=== PATIENT | female | born 1995 | race Caucasian/White ===

== ENCOUNTER → 2021-12-10 | Outpatient (CLI) | payer SELFPAY ==
[2021-12-12 22:06] LABS: CHLAMYDIA TRACHOMATIS, NAA Negative (Negative)
== END | disposition home or self-care (01) ==
LOC: LAB SHORT 18:53
PROVIDERS: Family Medicine
DX: R30.9 Painful micturition, unspecified (principal); Z72.51 High risk heterosexual behavior
CPT/HCPCS: 87086; 87491; 87591

== ENCOUNTER → 2023-06-04 | Outpatient (CLI) | payer OTHER ==
[2023-06-06 04:07] LABS: CHLAMYDIA TRACHOMATIS, NAA Negative (Negative)
== END | disposition home or self-care (01) ==
LOC: LAB 11:15 → LAB SHORT 11:15
PROVIDERS: Nurse Practitioner Family
DX: N39.0 Urinary tract infection, site not specified (principal)
CPT/HCPCS: 87491; 87591

== ENCOUNTER → 2023-10-29 | Outpatient (CLI) | payer OTHER ==
[~2023-10-29] MED LIST: ONDA4ODT SL
== END | disposition home or self-care (01) ==
LOC: LAB 08:12 → LAB SHORT 08:12
DX: R87.619 Unspecified abnormal cytological findings in specimens from cervix uteri (principal)
CPT/HCPCS: 88305

== ENCOUNTER 2023-11-22 18:10 | Emergency (ER) | payer OTHER ==
[~2023-11-22] VITALS: Ht 167.6 cm; Wt 80.3 kg
[2023-11-22 18:32] VITALS: BP 121/102
[2023-11-22 18:32] LABS: Source, Urine Clean Catch
[2023-11-22 18:36] LABS: Appearance, Urine Cloudy (Clear); Bilirubin, Urine Neg (Neg); Blood, Urine 5+ (Neg); Glucose Qualitative, Urine Neg (Neg); Ketones, Urine 2+ (Neg); Leukocyte Esterase, Urine 3+ (Neg); Nitrite, Urine Neg (Neg); Protein, Urine 2+ (Neg); Specific Gravity, Urine 1.015 (1.003-1.022); Urobilinogen, Urine NORM (Normal)
[2023-11-22 18:45] LABS: Color, Urine Pale Yellow (P-Yellow)
[2023-11-22 18:48] LABS: Bacteria Many /hpf; Red Blood Cells, Urine TNTC /hpf (0-2); Squamous Epithelial Cells Rare /hpf (Few); Transitional Epithelial Cells Rare /hpf (0-Rare); White Blood Cells, Urine TNTC /hpf (0-5)
[2023-11-22 18:49] LABS: Mucus Light (0-Heavy)
[2023-11-22] MEDS ORDERED: Pyridium200 MG PO (19:23)
[2023-11-22] MEDS ORDERED: CEFP200 PO (19:23)
== END 2023-11-22 19:35 | disposition home or self-care (01) ==
LOC: ER 18:10
PROVIDERS: Emergency Medicine
DX: R30.0 Dysuria (principal); Z88.8 Allergy status to other drugs, medicaments and biological substances
CPT/HCPCS: 81001; 87086; 99283; A9270

== ENCOUNTER → 2024-01-09 | Outpatient (CLI) | payer OTHER ==
[~2024-01-09] MED LIST changes: +CEFP200 PO; +Pyridium200 MG PO
== END ==
LOC: LAB 12:28 → LAB SHORT 12:28
DX: N39.0 Urinary tract infection, site not specified (principal)
CPT/HCPCS: 87086

== ENCOUNTER 2024-01-21 07:36 | Day surgery (SDC) | payer OTHER ==
[~2024-01-21] VITALS: Ht 167.6 cm; Wt 79.7 kg
[~2024-01-21 07:36] MED LIST changes: +Lactated Ringer's 1,000 ML IV ONE
[2024-01-21] MEDS ORDERED: HYDHCL25 (08:57)
[2024-01-21] MEDS ORDERED: Lactated Ringer's 1,000 ML IV ONE (09:06)
[2024-01-21] MEDS ORDERED: propofoL 20 ML IV ONE (09:13)
[2024-01-21] MEDS ORDERED: FentaNYL Citrate 50 MCG/ML 2 ML Injection ONE (09:14)
--- NOTE | 2024-01-21 09:15 | NUR ---
[facility]21/24 [facility] [facility] A[facility] OF RASH TO BACKSIDE, OK TO PROCEED PER DR FIGUEROA
[2024-01-21] MEDS ORDERED: Vasopressin 20 UNITS/ML 1ML Vial XX ONE (09:28)
[2024-01-21] MEDS ORDERED: Lidocaine HCl 1% 30 ML SDV XX ONE (09:28)
--- NOTE | 2024-01-21 09:29 | NUR ---
01/21/24 0929 Samira Shoemaker 30ML OF LIDOCAINE 1% MIXED WITH 10 UNITS OF VASOPRESSIN FOR INJECTION AT THE OPSITE BY DR FIGUEROA.
[2024-01-21] MEDS ORDERED: Dexamethasone Sod Phos 10 MG/ML 1ML VIAL ONE (09:33)
[2024-01-21] MEDS ORDERED: Ondansetron HCl 2 MG / ML 2ML Vial ONE (09:33)
[2024-01-21] MEDS ORDERED: Metoclopramide HCl 5MG / ML 2ML Vial ONE (09:33)
[2024-01-21] MEDS ORDERED: Ketorolac Tromethamine 30mg Vial ONE (09:38)
[2024-01-21] MEDS ORDERED: Acetaminophen 500 MG Tab ONE (10:24)
[2024-01-21 10:36] VITALS: BP 107/71
--- NOTE | 2024-01-21 10:59 | NUR ---
01/21/24 1059 Charity Bautista PT VOIDED PRIOR TO D/C TO HOME.
== END 2024-01-21 10:59 | disposition home or self-care (01) ==
LOC: ORSCSDS 07:36
PROVIDERS: Obstetrics & Gynecology
PROC: 0UBC7ZX Excision of Cervix, Via Natural or Artificial Opening, Diagnostic (ICD-10-PCS; principal; 2024-01-21 09:30)
DX: N72 Inflammatory disease of cervix uteri (principal); Z79.899 Other long term (current) drug therapy
CPT/HCPCS: 88305; A9270; J1100; J1885; J2405; J2704; J2765; J3010; J7120

== ENCOUNTER → 2024-02-22 | Outpatient (CLI) | payer OTHER ==
[~2024-02-22] MED LIST changes: +HYDHCL25; -Lactated Ringer's 1,000 ML IV ONE
[2024-02-22 11:31] LABS: Source, Urine Clean Catch
[2024-02-22 13:16] LABS: Appearance, Urine Hazy (Clear); Bilirubin, Urine Neg (Neg); Blood, Urine 5+ (Neg); Color, Urine Yellow (P-Yellow); Glucose Qualitative, Urine Neg (Neg); Ketones, Urine Neg (Neg); Leukocyte Esterase, Urine 3+ (Neg); Nitrite, Urine Neg (Neg); Protein, Urine 2+ (Neg); Specific Gravity, Urine 1.005 (1.003-1.022); Urobilinogen, Urine NORM (Normal); pH, Urine 6.5 (5.0-8.0)
[2024-02-22 13:34] LABS: Bacteria Few /hpf; Squamous Epithelial Cells Rare /hpf (Few); White Blood Cells, Urine 50-100 /hpf (0-5)
[2024-02-22 15:33] LABS: Bacterial Vaginosis PCR Positive (NEGATIVE); Candida Group, PCR NOT DETECTED (NOT DETECT); Candida glabrata-krusei, PCR NOT DETECTED (NOT DETECT)
== END | disposition home or self-care (01) ==
LOC: LAB 11:28 → LAB SHORT 11:28
PROVIDERS: Obstetrics & Gynecology
DX: N76.0 Acute vaginitis (principal); R30.0 Dysuria
CPT/HCPCS: 81001; 87077; 87086; 87186; 87481; 87661; 87801

== ENCOUNTER → 2024-03-08 | Outpatient (CLI) | payer OTHER ==
[2024-03-08 14:17] LABS: Source, Urine Clean Catch
[2024-03-08 15:36] LABS: Appearance, Urine Hazy (Clear); Bilirubin, Urine Neg (Neg); Blood, Urine 2+ (Neg); Color, Urine Yellow (P-Yellow); Glucose Qualitative, Urine Neg (Neg); Ketones, Urine Neg (Neg); Leukocyte Esterase, Urine 3+ (Neg); Nitrite, Urine Neg (Neg); Protein, Urine Neg (Neg); Urobilinogen, Urine NORM (Normal); pH, Urine 6.5 (5.0-8.0)
[2024-03-08 15:59] LABS: Bacteria Few /hpf; Squamous Epithelial Cells Few /hpf (Few); White Blood Cells, Urine TNTC /hpf (0-5)
[2024-03-08 20:10] LABS: Bacterial Vaginosis PCR Negative (NEGATIVE); Candida Group, PCR NOT DETECTED (NOT DETECT); Candida glabrata-krusei, PCR NOT DETECTED (NOT DETECT)
== END ==
LOC: LAB 14:16 → LAB SHORT 14:16
PROVIDERS: Obstetrics & Gynecology
DX: N76.0 Acute vaginitis (principal); R30.0 Dysuria
CPT/HCPCS: 81001; 87086; 87481; 87661; 87801

== ENCOUNTER → 2024-05-05 | Outpatient (CLI) | payer OTHER ==
[~2024-05-05] MED LIST changes: +ALLEGRA ALLERGY60 MG PO; +CIPR500 PO; +PRENATAL TABLE1 EAC2 PO; +VSL#3 112.5B1 EACH PO; +ZOLOFT25 MG PO
[2024-05-05 19:57] LABS: Bacterial Vaginosis PCR Negative (NEGATIVE); Candida Group, PCR NOT DETECTED (NOT DETECT)
[2024-05-05 19:58] LABS: Candida glabrata-krusei, PCR DETECTED (NOT DETECT)
== END ==
LOC: LAB 17:02 → LAB SHORT 17:02
PROVIDERS: Obstetrics & Gynecology
DX: N76.0 Acute vaginitis (principal)
CPT/HCPCS: 87481; 87661; 87801

== ENCOUNTER 2024-05-20 19:43 | Inpatient (IN) | payer OTHER ==
[~2024-05-20] VITALS: Ht 167.6 cm; Wt 83.8 kg
[~2024-05-20 19:43] MED LIST changes: -ALLEGRA ALLERGY60 MG PO; -CIPR500 PO; -PRENATAL TABLE1 EAC2 PO; -VSL#3 112.5B1 EACH PO; -ZOLOFT25 MG PO
[2024-05-20] MEDS ORDERED: ZOLOFT25 MG PO (20:09)
[2024-05-20] MEDS ORDERED: ALLEGRA ALLERGY60 MG PO (20:10)
[2024-05-20] MEDS ORDERED: NS 1,000 ML IV SCH (20:40)
[2024-05-20 20:41] LABS: BASOPHILS ABSOLUTE AUTO 0.02 K/mm3 (0.00-0.23); BASOPHILS PERCENT AUTO 0 % (0-2); EOSINOPHILS ABSOLUTE AUTO 0.07 K/mm3 (0.00-0.68); EOSINOPHILS PERCENT AUTO 1 % (0-6); Hematocrit 34.7 % (33.0-51.0); Hemoglobin 11.7 g/dL (11.5-16.0); IMMATURE GRAN ABSOLUTE AUTO 0.02 K/mm3 (0.00-0.10); IMMATURE GRAN PERCENT AUTO 0 % (0-1); LYMPHOCYTES ABSOLUTE AUTO 1.46 K/mm3 (0.84-5.20); LYMPHOCYTES PERCENT AUTO 24 % (21-46); MONOCYTES ABSOLUTE AUTO 0.66 K/mm3 (0.16-1.47); MONOCYTES PERCENT AUTO 11 % (4-13); Mean Corpuscular HGB 29.5 pg (26.0-34.0); Mean Corpuscular HGB Conc 33.7 g/dL (31.5-36.5); Mean Corpuscular Volume 88 fL (80-100); Mean Platelet Volume 11.6 fL (9.1-12.4); NEUTROPHILS ABSOLUTE AUTO 3.89 K/mm3 (1.96-9.15); NEUTROPHILS PERCENT AUTO 64 % (41-73); Platelet Count 191 K/mm3 (150-400); RDW Coefficient Variation 12.6 % (11.7-14.2); RDW Standard Deviation 40.4 fL (35.1-46.3); Red Blood Cell Count 3.96 M/mm3 (3.80-5.20); White Blood Cell Count 6.12 K/mm3 (4.00-11.30)
[2024-05-20 21:09] LABS: Acetaminophen, Random <2.0 ug/mL (10.0-30.0); Ethanol (Alcohol), Blood, Med <3 mg/dL; Magnesium, Blood 1.7 mg/dL (1.6-2.4); Salicylate <1.7 mg/dL (2.8-20.0)
[2024-05-20 21:10] LABS: Alanine Aminotransfer (ALT/SGP 11 U/L (12-78); Albumin, Blood 3.2 g/dL (3.4-5.0); Alk Phos 44 U/L (50-136); Anion Gap 10 mmol/L (3-11); Aspartate Aminotrans (AST/SGOT 13 U/L (12-37); Beta HCG, Quantitative, Serum 61737 mIU/mL (0-3); Bilirubin, Total 0.2 mg/dL (0.1-1.0); Blood Urea Nitrogen 10 mg/dL (8-24); Bun/Creatinine Ratio 19.9 (12.0-20.0); CO2, Blood 21 mmol/L (21-32); Calcium, Blood 8.7 mg/dL (8.5-10.1); Chloride, Blood 112 mmol/L (98-108); Globulin, Blood 3.3 g/dL (2.2-4.0); Glomerular Filtration Rate 132 (60-); Glucose, Blood 104 mg/dL (70-99); Potassium, Blood 3.7 mmol/L (3.5-5.5); Sodium, Blood 139 mmol/L (136-145); Total Protein, Blood 6.5 g/dL (6.4-8.2)
[2024-05-20 22:04] LABS: Source, Urine Clean Catch
[2024-05-20 22:10] LABS: Bilirubin, Urine Neg (Neg); Blood, Urine Neg (Neg); Glucose Qualitative, Urine Neg (Neg); Ketones, Urine Neg (Neg); Leukocyte Esterase, Urine 2+ (Neg); Nitrite, Urine Neg (Neg); Protein, Urine Neg (Neg); Specific Gravity, Urine 1.005 (1.003-1.022); Urobilinogen, Urine NORM (Normal)
[2024-05-20] MEDS ORDERED: NS 1,000 ML IV ONE (22:20)
[2024-05-20] MEDS ORDERED: Ondansetron HCl 2 MG / ML 2ML Vial IV PRN (22:20)
[2024-05-20 22:21] LABS: Appearance, Urine Clear (Clear); Bacteria Few /hpf; Color, Urine Yellow (P-Yellow); Red Blood Cells, Urine Not Seen /hpf (0-2); Squamous Epithelial Cells Few /hpf (Few)
[2024-05-20 22:35] LABS: U Amphetamine Screen Not Detected; U Barbituate Screen Not Detected; U Benzodiazapine Screen Not Detected; U Buprenorphine Screen Not Detected; U Cannabinoids Screen DETECTED; U Cocaine Screen Not Detected; U Methadone Screen Not Detected; U Methamphetamine Screen Not Detected; U Opiates Screen Not Detected; U Oxycodone Screen Not Detected; U Phencyclidine Screen Not Detected
[2024-05-20] MEDS ORDERED: Enoxaparin 40 MG/0.4 ML SYR SC SCH (23:00)
[2024-05-21] VITALS (35 sets, daily range): BP systolic 86–107; BP diastolic 50–72
[2024-05-21] MEDS ORDERED: Cephalexin Monohydrate 500 MG Cap PO ONE (01:10)
--- NOTE | 2024-05-21 02:08 | NUR ---
UPDATE ORDER FOR KEFLEX FROM ED DOC AT 0100. CALL TO HOSP TO CONFIRM MEDICATION. ORDER TO D/C IT. CALL FROM POISON CONTROL. NO NEW RECOMMENDATIONS AT THIS TIME.
[2024-05-21 03:35] LABS: BASOPHILS ABSOLUTE AUTO 0.02 K/mm3 (0.00-0.23); BASOPHILS PERCENT AUTO 0 % (0-2); EOSINOPHILS ABSOLUTE AUTO 0.07 K/mm3 (0.00-0.68); EOSINOPHILS PERCENT AUTO 1 % (0-6); Hematocrit 33.5 % (33.0-51.0); IMMATURE GRAN ABSOLUTE AUTO 0.03 K/mm3 (0.00-0.10); IMMATURE GRAN PERCENT AUTO 0 % (0-1); LYMPHOCYTES ABSOLUTE AUTO 1.76 K/mm3 (0.84-5.20); LYMPHOCYTES PERCENT AUTO 26 % (21-46); MONOCYTES PERCENT AUTO 10 % (4-13); Mean Corpuscular HGB 29.2 pg (26.0-34.0); Mean Corpuscular HGB Conc 32.8 g/dL (31.5-36.5); Mean Corpuscular Volume 89 fL (80-100); Mean Platelet Volume 11.5 fL (9.1-12.4); NEUTROPHILS ABSOLUTE AUTO 4.15 K/mm3 (1.96-9.15); NEUTROPHILS PERCENT AUTO 62 % (41-73); Platelet Count 173 K/mm3 (150-400); RDW Coefficient Variation 12.9 % (11.7-14.2); Red Blood Cell Count 3.77 M/mm3 (3.80-5.20); White Blood Cell Count 6.73 K/mm3 (4.00-11.30)
[2024-05-21 03:53] LABS: Albumin, Blood 2.9 g/dL (3.4-5.0); Albumin/Globulin Ratio 0.9 (0.8-1.8); Bilirubin, Total 0.3 mg/dL (0.1-1.0); Bun/Creatinine Ratio 15.3 (12.0-20.0); Calcium, Blood 8.2 mg/dL (8.5-10.1); Creatinine, Blood 0.52 mg/dL (0.40-1.00); Globulin, Blood 3.1 g/dL (2.2-4.0); Potassium, Blood 3.7 mmol/L (3.5-5.5)
--- NOTE | 2024-05-21 05:12 | NUR ---
SHIFT SUMMARY PT A/O X 4. COOPERATIVE WITH CARE. FLAT AND WITHDRAWN AFFECT. C/O OF DIZZINESS WHEN AMBULATING. DENIES PAIN OR N/V. STATES "I JUST FEEL TIRED". DENIES SI T/O THE NIGHT. 1:1 SITTER AT BEDSIDE. NS AT 100ML/HR. VSS. BP SOFT WITH MAP GREATER THEN 65. SR RATE 60-70'S. WILL REPORT OFF TO ONCOMING RN.
[2024-05-21] MEDS ORDERED: Prenatal Vit/FE Fumarate/FA 1 Tab PO SCH (15:30)
[2024-05-21] MEDS ORDERED: Loratadine 10 MG Tab PO SCH (15:30)
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
--- NOTE | 2024-05-21 17:50 | NUR ---
offered oral care in Am and PM. pt declied both times. This am she said she couldn't stay awake and this ana rosa yost said later. Will let staff know when ready. Pt also declined a shower. Saying she felt to unsteady to get herself to the shower room, stand to take a shower and back to room. This PCT explained we have wheelchairs and shower chairs. Pt still declined.
--- NOTE | 2024-05-21 18:36 | NUR ---
RECEIVED PT FROM ICU. PT PLEASANT COOP A/O AND TALKING. SETTLED TO ROOM. ROOM CLEARED PRIOR TO TRANSPORT IN. FLUE TILE PRESS OPERATOR TO SIT WITH PT UNTIL SITTER HERE.
[2024-05-22 04:04] VITALS: BP 98/60
--- NOTE | 2024-05-22 06:39 | NUR ---
SHIFT SUMMARY PT IS A&OX4, PLEASANT AND COOPERATIVE. VSS ON RA. PT HAS DENIED ANY SI THIS SHIFT. DENIES PAIN. TOLERATING A GENERAL DIET, HAD A SANDWHICH TONIGHT FOR A SNACK. SBA TO BR TO VOID, NO BM THIS SHIFT. SUICIDE PRECAUTIONS MAINTAINED. 1:1 SITTER AT BEDSIDE. BED IN LOWEST POSITION, CALL LIGHT WITHIN REACH.
[2024-05-22 07:15] VITALS: BP 105/65
[2024-05-22] MEDS ORDERED: NS 250 ML IV PRN (10:25)
[2024-05-22] MEDS ORDERED: CefTRIAXone Sodium 1,000 MG in NS 100 ML IV SCH (10:30)
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
[2024-05-22 15:17] VITALS: BP 119/59
[2024-05-22] MEDS ORDERED: PRENATAL TABLE1 EAC2 PO (17:22)
[2024-05-22] MEDS ORDERED: CIPR500 PO (17:23)
[2024-05-22] MEDS ORDERED: VSL#3 112.5B1 EACH PO (17:23)
== END 2024-05-22 18:27 | disposition home or self-care (01) | DRG 832 ==
LOC: ER 19:43 → ICUE 19:44 → MEDS 05-21 18:28
PROVIDERS: Student in an Organized Health Care Education/Training Program; ADMIT Internal Medicine
DX: O9A.211 Injury, poisoning and certain other consequences of external causes complicating pregnancy, first trimester (principal); N39.0 Urinary tract infection, site not specified; O99.344 Other mental disorders complicating childbirth; O23.41 Unspecified infection of urinary tract in pregnancy, first trimester; F31.9 Bipolar disorder, unspecified; F90.9 Attention-deficit hyperactivity disorder, unspecified type; M41.9 Scoliosis, unspecified; O99.891 Other specified diseases and conditions complicating pregnancy; T40.712A Poisoning by cannabis, intentional self-harm, initial encounter; B96.20 Unspecified Escherichia coli [E. coli] as the cause of diseases classified elsewhere; T36.8X5A Adverse effect of other systemic antibiotics, initial encounter; Z3A.01 Less than 8 weeks gestation of pregnancy
CPT/HCPCS: 36415; 76801; 80053; 81001; 81025; 83735; 83880; 84702; 85025; 87077; 87086; 87186; 93005; 93010; 96360; 96361; 99285-25; A9270; G0378; G0480; J0696; J7030; J7050

== ENCOUNTER 2024-05-25 15:49 | Emergency (ER) | payer OTHER ==
[~2024-05-25] VITALS: Ht 167.6 cm; Wt 83.5 kg
[~2024-05-25 15:49] MED LIST changes: +ALLEGRA ALLERGY60 MG PO; +CIPR500 PO; +PRENATAL TABLE1 EAC2 PO; +VSL#3 112.5B1 EACH PO; +ZOLOFT25 MG PO
[2024-05-25 16:01] VITALS: BP 132/84
== END 2024-05-25 17:39 | disposition home or self-care (01) ==
LOC: ER 15:49
DX: O22.21 Superficial thrombophlebitis in pregnancy, first trimester (principal); Z3A.08 8 weeks gestation of pregnancy; Z79.899 Other long term (current) drug therapy; Z88.8 Allergy status to other drugs, medicaments and biological substances
CPT/HCPCS: 93971; 99283-25

== ENCOUNTER → 2024-08-03 | Outpatient (CLI) | payer OTHER ==
[2024-08-03 19:15] LABS: Bacterial Vaginosis PCR Negative (NEGATIVE); Candida Group, PCR NOT DETECTED (NOT DETECT); Candida glabrata-krusei, PCR NOT DETECTED (NOT DETECT)
== END | disposition home or self-care (01) ==
LOC: LAB 15:55 → LAB SHORT 15:55
PROVIDERS: Obstetrics & Gynecology
DX: Z01.419 Encounter for gynecological examination (general) (routine) without abnormal findings (principal); N89.8 Other specified noninflammatory disorders of vagina
CPT/HCPCS: 87481; 87661; 87801

== ENCOUNTER → 2024-12-07 | Outpatient (CLI) | payer OTHER | LOC: LAB 17:39 → LAB SHORT 17:39 | DX: O09.71 Supervision of high risk pregnancy due to social problems, first trimester (principal) | CPT/HCPCS: 87081; 87150 ==

== ENCOUNTER 2025-01-01 20:05 | Inpatient (IN) | payer OTHER ==
[~2025-01-01] VITALS: Ht 167.6 cm; Wt 105.0 kg
[2025-01-01 20:23] VITALS: BP 120/80
[2025-01-01] MEDS ORDERED: Morphine Sulfate 10 MG/ML 1MLSYR IM ONE (21:05)
[2025-01-01] MEDS ORDERED: Misoprostol 200 MCG Tab BC PRN (22:00)
[2025-01-01] MEDS ORDERED: Methylergonovine Maleate 0.2MG / ML 1ML Amp IM PRN (22:00)
[2025-01-01] MEDS ORDERED: OXYTOCIN/RINGER'S LACTATE 500 ML IV PRN (22:00)
[2025-01-01] MEDS ORDERED: Ondansetron HCl 2 MG / ML 2ML Vial IV PRN (22:00)
[2025-01-01] MEDS ORDERED: Carboprost Tromethamine 250 MCG/ML 1ML Amp IM PRN (22:00)
[2025-01-01] MEDS ORDERED: FentaNYL 2mcg/ml-Bup 0.1% Epd 250 ML EPI PRN (22:00)
[2025-01-01] MEDS ORDERED: Calcium Carbonate 500 MG Tab Chew PO PRN (22:00)
[2025-01-01] MEDS ORDERED: Misoprostol 200 MCG Tab PR PRN (22:00)
[2025-01-01] MEDS ORDERED: Acetaminophen 500 MG Tab PO PRN (22:00)
[2025-01-01] MEDS ORDERED: Lactated Ringer's 1,000 ML IV PRN ×3 (22:00)
[2025-01-01] MEDS ORDERED: Oxytocin 10 Unit / ML Vial IM PRN (22:00)
[2025-01-01] MEDS ORDERED: ePHEDrine Sulfate 50 MG/ML 1ML Injection XX PRN (22:00)
[2025-01-01] MEDS ORDERED: Tranexamic Acid 100 ML IV SCH (22:00)
[2025-01-01] MEDS ORDERED: FentaNYL Citrate 50 MCG/ML 2 ML Injection IV PRN (22:05)
[2025-01-01 22:19] VITALS: BP 135/79
[2025-01-01 22:43] LABS: BASOPHILS ABSOLUTE AUTO 0.04 K/mm3 (0.00-0.23); BASOPHILS PERCENT AUTO 0 % (0-2); EOSINOPHILS ABSOLUTE AUTO 0.06 K/mm3 (0.00-0.68); EOSINOPHILS PERCENT AUTO 0 % (0-6); Hematocrit 37.5 % (33.0-51.0); Hemoglobin 12.9 g/dL (11.5-16.0); IMMATURE GRAN PERCENT AUTO 2 % (0-1); LYMPHOCYTES ABSOLUTE AUTO 1.73 K/mm3 (0.84-5.20); LYMPHOCYTES PERCENT AUTO 12 % (21-46); MONOCYTES ABSOLUTE AUTO 1.02 K/mm3 (0.16-1.47); MONOCYTES PERCENT AUTO 7 % (4-13); Mean Corpuscular HGB 30.3 pg (26.0-34.0); Mean Corpuscular HGB Conc 34.4 g/dL (31.5-36.5); Mean Corpuscular Volume 88 fL (80-100); Mean Platelet Volume 11.5 fL (9.1-12.4); NEUTROPHILS ABSOLUTE AUTO 11.45 K/mm3 (1.96-9.15); NEUTROPHILS PERCENT AUTO 78 % (41-73); Platelet Count 202 K/mm3 (150-400); RDW Standard Deviation 42.3 fL (35.1-46.3); Red Blood Cell Count 4.26 M/mm3 (3.80-5.20)
[2025-01-01] MEDS ORDERED: POTASSIUM99 M3 PO (23:01)
[2025-01-01] MEDS ORDERED: OMEP20ER PO (23:01)
[2025-01-01] MEDS ORDERED: METHYL B12-MET1 EACH PO (23:02)
[2025-01-02] VITALS (30 sets, daily range): BP systolic 109–141; BP diastolic 58–77
--- NOTE | 2025-01-02 00:18 | NUR ---
DR. ANDERSON PT IS REQUESTING EPIDRUAL
[2025-01-02] MEDS ORDERED: NS 0 ML IV ONE (01:31)
[2025-01-02] MEDS ORDERED: Witch Hazel/Glycerin PADS TOP PRN (04:50)
[2025-01-02] MEDS ORDERED: Lanolin Cream TOP PRN (04:50)
[2025-01-02] MEDS ORDERED: Lactated Ringer's 1,000 ML IV SCH (04:55)
[2025-01-02] MEDS ORDERED: Polyethylene Glycol 3350 17 gm PO PRN (04:55)
[2025-01-02] MEDS ORDERED: Benzocaine Topical Anesthetic Spray 60GM TOP PRN (04:55)
[2025-01-02] MEDS ORDERED: Acetaminophen 325 MG TABLET PO PRN (04:55)
[2025-01-02] MEDS ORDERED: FLU VACC TS2024-25(6MOS UP)/PF 45 MCG/0.5 ML SYRINGE IM ONE (04:55)
[2025-01-02] MEDS ORDERED: Ibuprofen 400 MG Tab PO PRN (04:55)
[2025-01-02] MEDS ORDERED: Ketorolac Tromethamine 30mg Vial IV SCH (06:00)
[2025-01-02 08:40] LABS: BASOPHILS ABSOLUTE AUTO 0.04 K/mm3 (0.00-0.23); BASOPHILS PERCENT AUTO 0 % (0-2); EOSINOPHILS ABSOLUTE AUTO 0.01 K/mm3 (0.00-0.68); EOSINOPHILS PERCENT AUTO 0 % (0-6); Hematocrit 37.9 % (33.0-51.0); Hemoglobin 13.1 g/dL (11.5-16.0); IMMATURE GRAN ABSOLUTE AUTO 0.25 K/mm3 (0.00-0.10); IMMATURE GRAN PERCENT AUTO 1 % (0-1); LYMPHOCYTES ABSOLUTE AUTO 1.67 K/mm3 (0.84-5.20); LYMPHOCYTES PERCENT AUTO 8 % (21-46); MONOCYTES ABSOLUTE AUTO 1.75 K/mm3 (0.16-1.47); MONOCYTES PERCENT AUTO 8 % (4-13); Mean Corpuscular HGB 30.3 pg (26.0-34.0); Mean Corpuscular HGB Conc 34.6 g/dL (31.5-36.5); Mean Corpuscular Volume 88 fL (80-100); Mean Platelet Volume 11.6 fL (9.1-12.4); NEUTROPHILS ABSOLUTE AUTO 17.99 K/mm3 (1.96-9.15); NEUTROPHILS PERCENT AUTO 83 % (41-73); Platelet Count 221 K/mm3 (150-400); RDW Coefficient Variation 12.8 % (11.7-14.2); RDW Standard Deviation 41.1 fL (35.1-46.3); Red Blood Cell Count 4.33 M/mm3 (3.80-5.20); White Blood Cell Count 21.71 K/mm3 (4.00-11.30)
[2025-01-02] MEDS ORDERED: Prenatal Vit/FE Fumarate/FA 1 Tab PO SCH (09:00)
[2025-01-02] MEDS ORDERED: Methylergonovine Maleate 0.2MG / ML 1ML Amp XX ONE (09:20)
--- NOTE | 2025-01-02 17:33 | NUR ---
PT EDUCATED ON PUMP USE AND , DIAPER CHANGES AND BURPING AFTER COMMENTS AFTER NOT KNOWING HOW TO TELL IF DIAPER IS DIRTY AND NOT KNOWING HOW TO BURP BABY. MOM ENTERING BABYS DIAPERS AND FEEDS ONTO SBUHASH ON HER PHONE. ENGAGED IN CARE AND LEARNING.
[2025-01-03 00:11] VITALS: BP 108/55
[2025-01-03 05:03] VITALS: BP 122/68
[2025-01-03 07:08] VITALS: BP 125/61
--- NOTE | 2025-01-03 10:26 | NUR ---
PT DISCHARGE CONCERNS PT REPORTS CONCERNS WITH FEEDING AND DISCHARGE PLANS FOR TODAY. PT REPORTS WOULD FEEL BETTER TO STAY ONE MORE NIGHT R/T BABY NOT FEEDING WELL, F/U APPT SCHEDULED FOR TOMORROW MORNING, AND INCLEMENT WEATHER CONDITIONS. LIANA ZUÑIGA INFORMED AND AGREED TO CALL PROVIDER WITH CONCERNS. CALL PLACED AND MESSAGE LEFT TO MAURA BRYSON FOR FURTHER DIRECTION.
--- NOTE | 2025-01-03 11:20 | NUR ---
PT DECISION TO DISCHARGE TODAY WITH F/U TOMORROW 01/04/25 @10AM. PT ASSISTED WITH ASSISTANCE AND EDUCATED ON RESOURCES AVAILABLE WITH CONCERNS INCLUDING FBP. INFORMED PT WILL PROVIDE DONOR MILK AT DISCHARGE FOR USE IF NECESSARY. V/U BY PT AND REPORTED RELIEF OF CONCERNS. OB PROVIDER AND PEDS PROVIDERS NOTIFIED OF PT DECISIONS.
[2025-01-03 11:43] VITALS: BP 130/69
[2025-01-03] MEDS ORDERED: Measles/Mumps/Rubella Vaccine 0.5 ML Vial SC ONE (12:15)
[2025-01-03 14:20] VITALS: BP 127/63
== END 2025-01-03 14:46 | disposition home or self-care (01) | DRG 806 ==
LOC: BC 20:05 → OBS 20:05 → BC 20:07 → OBS 22:01 → BC 22:04
PROVIDERS: ADMIT Family Medicine
PROC: 10E0XZZ Delivery of Products of Conception, External Approach (ICD-10-PCS; principal; 2025-01-02)
PROC: 4A1HXCZ Monitoring of Products of Conception, Cardiac Rate, External Approach (ICD-10-PCS; 2025-01-02)
PROC: 0UJD7ZZ Inspection of Uterus and Cervix, Via Natural or Artificial Opening (ICD-10-PCS; 2025-01-02)
DX: O99.344 Other mental disorders complicating childbirth (principal); O72.1 Other immediate postpartum hemorrhage; Z37.0 Single live birth; Z59.01 Sheltered homelessness; F41.9 Anxiety disorder, unspecified; Z91.51 Personal history of suicidal behavior; M41.9 Scoliosis, unspecified; O99.892 Other specified diseases and conditions complicating childbirth; Z3A.40 40 weeks gestation of pregnancy; O99.62 Diseases of the digestive system complicating childbirth; K21.9 Gastro-esophageal reflux disease without esophagitis; Z88.8 Allergy status to other drugs, medicaments and biological substances; F31.9 Bipolar disorder, unspecified; O69.81X0 Labor and delivery complicated by cord around neck, without compression, not applicable or unspecified
CPT/HCPCS: 36415; 51702; 59025; 81003; 85025; 86850; 86900; 86901; 90707; 99214; A9270; J1885; J2210; J2270; J2405; J2590; J7120

== ENCOUNTER → 2025-02-16 | Outpatient (CLI) | payer OTHER ==
[~2025-02-16] MED LIST changes: +METHYL B12-MET1 EACH PO; +OMEP20ER PO; +POTASSIUM99 M3 PO
[2025-02-16 15:05] LABS: Bacterial Vaginosis PCR Negative (NEGATIVE); Candida Group, PCR NOT DETECTED (NOT DETECT); Candida glabrata-krusei, PCR NOT DETECTED (NOT DETECT)
== END ==
LOC: LAB SHORT 12:40 → LAB 12:40
PROVIDERS: Family Medicine
DX: N76.0 Acute vaginitis (principal)
CPT/HCPCS: 81515; 87086

== ENCOUNTER → 2025-05-08 | Outpatient (CLI) | payer OTHER | END | disposition home or self-care (01) | LOC: LAB SHORT 11:31 → LAB 11:31 | DX: R30.0 Dysuria (principal) | CPT/HCPCS: 87086 ==